=== PATIENT | male | born 1955 | race Two or more races ===

== ENCOUNTER 2018-03-04 09:52 | Day surgery (SDC) | payer OTHER ==
[2018-03-03 14:24] VITALS: BMI 29.8
[2018-03-04 12:26] VITALS: TEMP 97.6
[2018-03-04 13:05] VITALS: BP 125/77; PULSE 69
--- NOTE | 2018-03-05 19:30 | PATH ---
Surgical Pathology Report Patient Name: GAMALIEL TIRADO [facility]. Rec. #: [id number] /Age/Gender: 1955 (Age: 62) / M Account: [id number] Location: U-ENDOSCOPY Taken: 03/04/2018 Received: 03/04/2018 Reported: 03/05/2018 Physicians: Jay Valentin M.D. Specimen(s) Received A: BX DUODENUM B: BX NODULAR BODY Clinical History Abdominal gas and bloating, early satiety Postoperative diagnosis: Nodular mucosa body Final Diagnosis A. DUODENUM, BIOPSY: DUODENAL MUCOSA WITHOUT SIGNIFICANT PATHOLOGIC FINDINGS. B. STOMACH, NODULAR BODY, BIOPSY: GASTRIC BODY MUCOSA WITH MILD CHRONIC GASTRITIS. IMMUNOHISTOCHEMICAL STAIN FOR H. PYLORI IS NEGATIVE. Electronically Signed Tamanna Butterfield M.D. Gross Description A. Received in formalin, labeled "biopsy duodenum" are 2 barnes, irregular portions of soft tissue averaging 0.3 cm. in greatest dimension. The specimens are submitted in toto in one cassette. B. Received in formalin, labeled "biopsy nodular body" are 2 barnes, irregular portions of soft tissue averaging 0.3 cm. in greatest dimension. The specimens are submitted in toto in one cassette. 03/04/2018 saudi03/04/2018
== END 2018-03-04 13:06 | disposition home or self-care (01) ==
LOC: JASU-ENDO 09:52
PROVIDERS: ATTEND Internal Medicine Gastroenterology
PROC: 0DB68ZX Excision of Stomach, Via Natural or Artificial Opening Endoscopic, Diagnostic (ICD-10-PCS; principal; 2018-03-04 10:00)
DX: K29.50 Unspecified chronic gastritis without bleeding (principal); I10 Essential (primary) hypertension; E11.9 Type 2 diabetes mellitus without complications; Z79.84 Long term (current) use of oral hypoglycemic drugs
CPT/HCPCS: 88305-TC; 88342-TC

== ENCOUNTER 2018-10-11 17:16 | Emergency (ER) | payer OTHER | END 2018-10-11 21:50 | disposition home or self-care (01) | LOC: JER 17:16 ==

== ENCOUNTER 2020-05-04 09:12 | Emergency (ER) | payer OTHER ==
[2020-05-04 09:16] VITALS: BP 152/87; PULSE 94; TEMP 98.1; BMI 29.8
[2020-05-04] MEDS ORDERED: LIDOCAINE 5% TOPICAL PATCH TP ONE (09:36)
[2020-05-04] MEDS ORDERED: KETOROLAC TROMETHAMINE 60 MG/2 ML VIAL IM ONE (09:36)
[2020-05-04] MEDS ORDERED: LIDOCAINE 5% TOPICAL PATCH ONE (09:47)
[2020-05-04] MEDS ORDERED: KETOROLAC TROMETHAMINE 30 MG/1 ML VIAL ONE (09:47)
== END 2020-05-04 10:15 | disposition home or self-care (01) ==
LOC: JERFT 09:12
PROC: 3E0233Z Introduction of Anti-inflammatory into Muscle, Percutaneous Approach (ICD-10-PCS; principal; 2020-05-04)
DX: M54.32 Sciatica, left side (principal)
CPT/HCPCS: 72100-TC-FY; 99284-25

== ENCOUNTER 2020-08-14 17:11 | Emergency (ER) | payer BC, OTHER ==
[2020-08-14 17:38] VITALS: TEMP 98.5; BMI 28.3
[2020-08-14 19:32] LABS: EPI CELLS 16 /uL (0-25.1); HYALINE CASTS 1 /uL (0-3.1); URINE APPEARANCE CLEAR; URINE BACTERIA 22 /uL (0-1359); URINE BILIRUBIN NEGATIVE (NEGATIVE); URINE COLOR YELLOW; URINE GLUCOSE (UA) 3+ (NEGATIVE); URINE KETONE NEGATIVE (NEGATIVE); URINE LEUK ESTERASE 2+ (NEGATIVE); URINE NITRITE NEGATIVE (NEGATIVE); URINE PROTEIN NEGATIVE (NEGATIVE); URINE RBC 14 /uL (0-23.9); URINE UROBILINOGEN 0.2 mg/dL (0.2-1.0); URINE WBC 332 /uL (0-25.8)
[2020-08-14 19:47] LABS: CALCIUM 9.4 mg/dL (8.5-10.1)
[2020-08-14 19:48] LABS: BLOOD UREA NITROGEN 13.5 mg/dL (7-18)
[2020-08-14 19:51] LABS: CREATININE 1.1 mg/dL (0.55-1.3)
[2020-08-14 19:52] LABS: BILIRUBIN,TOTAL 0.2 mg/dL (0.2-1); TOT PROT 7.8 g/dl (6.4-8.2)
[2020-08-14 19:53] LABS: BASO % 0.6 % (0-2.0); EOS % 0.7 % (0-4.5); HEMATOCRIT 36.9 % (35.4-49); HEMOGLOBIN 12.5 GM/dL (11.7-16.9); LYMPH % 26.2 % (8-40); MCH 33.1 pg (25.7-33.7); MEAN CELL VOLUME 97.3 fl (80-96); MEAN PLT VOLUME 8.8 fl (7.5-11.1); MONO % 35.2 % (3.8-10.2); NEUT % 37.3 % (42.8-82.8); PLATELET COUNT 243 K/MM3 (134-434); RBC 3.79 M/mm3 (4.00-5.60); WHITE BLOOD COUNT 8.2 K/mm3 (4.0-10.0)
[2020-08-14 20:47] VITALS: BP 141/89; PULSE 84
== END 2020-08-14 22:13 | disposition home or self-care (01) ==
LOC: JER 17:11
DX: N45.1 Epididymitis (principal)
CPT/HCPCS: 36415; 76870-TC; 80053; 81003; 85025; 87086; 87491; 87591; 99284-25

== ENCOUNTER 2021-03-09 23:29 | Emergency (ER) | payer MEDICARE, OTHER ==
[2021-03-09 23:39] VITALS: BP 132/80; PULSE 96; TEMP 98; BMI 27.9
[2021-03-10 02:34] LABS: INR 1.04 (0.83-1.09); PROTHROMBIN TIME (PATIENT) 11.7 SEC (9.7-13.0)
[2021-03-10 02:37] LABS: PH,URINE 5.5 (5.0-8.0); URINE APPEARANCE CLEAR; URINE BILIRUBIN NEGATIVE (NEGATIVE); URINE COLOR YELLOW; URINE GLUCOSE (UA) 1+ (NEGATIVE); URINE KETONE NEGATIVE (NEGATIVE); URINE LEUK ESTERASE NEGATIVE (NEGATIVE); URINE NITRITE NEGATIVE (NEGATIVE); URINE PROTEIN NEGATIVE (NEGATIVE); URINE UROBILINOGEN 0.2 mg/dL (0.2-1.0)
[2021-03-10 02:37] LABS: ACTIVATED PTT 28.3 SECONDS (25.2-36.5)
[2021-03-10 02:45] LABS: HEMATOCRIT 34.1 % (35.4-49); HEMOGLOBIN 11.7 GM/dL (11.7-16.9); MCH 32.6 pg (25.7-33.7); MCHC 34.3 g/dl (32.0-35.9); MEAN CELL VOLUME 95.2 fl (80-96); MEAN PLT VOLUME 8.1 fl (7.5-11.1); PLATELET COUNT 257 10^3/uL (134-434); RBC 3.59 M/mm3 (4.00-5.60); RDW 13.3 % (11.9-15.9); WHITE BLOOD COUNT 4.7 K/mm3 (4.0-10.0)
[2021-03-10 02:54] LABS: MAGNESIUM 2.1 mg/dL (1.8-2.4)
[2021-03-10 02:55] LABS: CALCIUM 8.9 mg/dL (8.5-10.1)
[2021-03-10 02:56] LABS: ALBUMIN 3.7 g/dl (3.4-5.0); BLOOD UREA NITROGEN 17.7 mg/dL (7-18)
[2021-03-10 02:58] LABS: CREATININE 1.3 mg/dL (0.55-1.3)
[2021-03-10 03:00] LABS: TOT PROT 7.5 g/dl (6.4-8.2)
[2021-03-10 03:01] LABS: BILIRUBIN,TOTAL 0.3 mg/dL (0.2-1)
[2021-03-10 05:08] LABS: ANISOCYTOSIS 1+; MACROCYTOSIS 1+; PLATELET ESTIMATE NORMAL; TEAR DROP CELLS 1+
== END 2021-03-10 03:30 | disposition home or self-care (01) ==
LOC: JER 23:29
DX: N50.3 Cyst of epididymis (principal); G89.18 Other acute postprocedural pain
CPT/HCPCS: 36415; 76870-TC; 80053; 81003; 82550; 83605; 83735; 85025; 85610; 85651; 85730; 86140; 87040; 87086; 99284-25